=== PATIENT | female | born 1995 | race Caucasian/White ===

== ENCOUNTER 2019-07-12 16:50 | Emergency (ER) | payer OTHER ==
[2019-07-12] MEDS: METHYLPREDNISOLONE 125 MG INJ IM (19:14)
[2019-07-12] MEDS: KETOROLAC 60 MG INJ IM (19:14)
== END 2019-07-12 19:26 | disposition home or self-care (01) ==
LOC: FTE 16:50
DX: M54.42 Lumbago with sciatica, left side (principal); E11.9 Type 2 diabetes mellitus without complications; F17.210 Nicotine dependence, cigarettes, uncomplicated
CPT/HCPCS: 81025; 96372; 99284-25